=== PATIENT | male | born 1940 | race Caucasian/White ===

== ENCOUNTER 2017-06-14 13:21 | Emergency (ER) | payer MEDICARE, MEDICAID ==
--- NOTE | 2017-06-14 15:43 | RAD ---
Indication: Fall, headaches. CT of the brain was performed without IV contrast. Comparison is made with the prior exam dated 04/02/2015 and 12/04/2008. Ventricular structures are midline. No midline shift is noted. There is no intracranial mass or hemorrhage noted. Patient status post left craniotomy. Dense vessels are noted especially the middle cerebral artery from atherosclerosis. 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 IMPRESSION: Postoperative changes with no intracranial hemorrhage. Extensive atherosclerosis of the intracranial vessels is noted.
--- NOTE | 2017-06-14 15:51 | RAD ---
INDICATION: Fall. Possible neck injury COMPARISON: None TECHNIQUE: Noncontrast axial source images was performed from the skull base to the thoracic inlet. Coronal and and sagittal reformatted images were generated. FINDINGS: Vertebrae: There is no fracture or acute focal bony lesion. There are osteocytic changes with advanced narrowing about C6-C7 and moderate narrowing about C5-C6 and C4-C5. Anterior vertebral spurring, endplate changes, and uncinate process spurring leading to mild multilevel bilateral foraminal narrowing between C4 and C6. Alignment: The craniocervical junction appears normal. The cervical vertebrae are normally aligned. Central Canal: There are no significant CT abnormalities of the central canal. There is multilevel foraminal narrowing as noted above.. MR imaging is a more sensitive method to evaluate the canal and foramina. Intervertebral disc spaces: The remaining disc spaces are maintained. Brain: The visualized brain appears unremarkable. Soft tissues: There are soft tissue calcifications posteriorly consistent with prior soft tissue insult. The prevertebral soft tissues appear normal. The lung apices are clear. IMPRESSION: MODERATE MIDCERVICAL OSTEOPHYTE CHANGE. NO ACUTE FINDINGS.
--- NOTE | 2017-06-14 17:35 | RAD ---
INDICATION: Right femoral pain COMPARISON: None TECHNIQUE: AP and lateral views were obtained. FINDINGS: There is no acute bony change. There is mild bony demineralization. There is right knee arthroplasty. IMPRESSION: NO ACUTE BONY FINDINGS.
--- NOTE | 2017-06-14 17:36 | RAD ---
INDICATION: Right knee pain COMPARISON: None TECHNIQUE: AP and lateral views were obtained. FINDINGS: There is no acute bony change. There is right knee arthroplasty. The prosthesis appears well seated. IMPRESSION: NO ACUTE BONY FINDINGS.
--- NOTE | 2017-06-14 17:36 | RAD ---
INDICATION: Right hip pain. Fall. COMPARISON: None TECHNIQUE: An AP view of the pelvis and AP views of the hip in neutral and abducted position were obtained FINDINGS: Bones: There are no acute bony findings. Joint spaces: There is mild symmetric narrowing about both hip joint spaces. SI joints/symphysis: The SI joints and symphysis are intact. Other: None IMPRESSION: NO ACUTE BONY FINDINGS.
--- NOTE | 2017-06-14 17:37 | RAD ---
INDICATION: Right lower extremity pain COMPARISON: None TECHNIQUE: AP and lateral views were obtained. FINDINGS: There is osteopenia. No acute bony changes seen. There is mild dependent edema.. IMPRESSION: NO ACUTE BONY CHANGE.
[2017-06-14] MEDS ORDERED: NS 0.9% 1000 ML* 1,000 ML IV SCH (18:15)
[2017-06-14 19:19] LABS: ABS Basophils 0 10^3/ul (0-0.2); ABS Eosinophils 0 10^3/ul (0-0.6); ABS Lymphocytes 0.7 10^3/ul (1.0-4.8); ABS Monocytes 0.8 10^3/ul (0-0.8); ABS Neutrophils 6.4 10^3/ul (1.5-7.7); ABS Nucleated RBC 0 10^3/ul; Eosinophil % 0.4 % (0-6); Hematocrit 46 % (42-52); Hemoglobin 15.6 g/dl (14.0-18.0); Lymphocyte % 8.5 % (25-47); Mean Corpuscular HGB Conc 34 g/dl (31-36); Mean Corpuscular Hemoglobin 34 pg (27-31); Mean Corpuscular Volume 98 fL (80-94); Mean Platelet Volume 8 um3 (7.4-10.4); Nucleated Red Blood Cells % 0; Platelet Count 121 10^3/ul (150-450); Red Blood Count 4.64 10^6/ul (4.0-5.4); Red Cell Distribution Width 15 % (10.5-15); White Blood Count 7.9 10^3/ul (3.5-10.8)
[2017-06-14 19:28] LABS: INR 1.03 (0.77-1.02)
[2017-06-14] MEDS ORDERED: Acetaminophen TAB* 325 MG PO ONE (19:37)
[2017-06-14 20:37] VITALS: BP 146/84
[2017-06-14] MEDS ORDERED: Magnesium Sulfate 2 GM IV* 2 GM/50 ML BAG IVPB ONE (21:07)
[2017-06-14 21:49] LABS: Urine Appearance Cloudy; Urine Blood Negative (Negative); Urine Color Yellow; Urine Ketones Trace (Negative); Urine Protein Negative (Negative); Urine Specific Gravity 1.015 (1.010-1.030); Urine Urobilinogen Negative (Negative)
--- NOTE | 2017-06-14 22:13 | ED ---
Shreyas Crawford Stephanie, scribed for Christiano Da Silva MD on 06/14/17 at 1515 . Lower Extremity - HPI Summary HPI Summary: The pt is a 76 y/o M presenting to the ED with c/o lower extremity pain that began at 12:05 at [facility] s/p fall. Symptoms include neck pain, headache, and R knee and R hip pain. Pt denies abd pain and upper extremity pain. - History of Current Complaint Chief Complaint: EDExtremityLower Stated Complaint: FALL Time Seen by Provider: 06/14/17 14:33 Hx Obtained From: Patient, Family/Straightener - niece Mechanism Of Injury: Fall From A Standing Position Onset of Pain: Post Accident Onset/Duration: Hours - 3 Severity Currently: Severe Pain Intensity: 8 Pain Scale Used: 0-10 Numeric Timing: Constant Location: Is Discrete @ - R hip, R knee Associated Signs And Symptoms: Positive: Knee Pain. Negative: Abdominal Pain Aggravating Factor(s): Standing, Ambulation, Movement, Weight Bearing Alleviating Factor(s): Rest - Allergies/Home Medications Allergies/Adverse Reactions: Allergies Allergy/AdvReac Type Severity Reaction Status Date / Time Amitriptyline Allergy Unknown Verified 06/14/17 19:46 Reaction Details Topiramate Allergy Unknown Verified 06/14/17 19:46 Reaction Details propanalol Allergy Unknown Uncoded 06/14/17 19:46 Reaction Details Home Medications: Home Medications Acetaminophen TAB* [Tylenol TAB*] 650 mg PO DAILY 06/14/17 [History Confirmed ] Acetaminophen TAB* [Tylenol TAB*] 650 mg PO Q4H PRN MDD 3000mg 06/14/17 [ History Confirmed 06/14/17] Brimonidine P 0.1%(NF) [Alphagan P 0.1% (NF)] 1 drop BOTH EYES BID 06/14/17 [ History Confirmed 06/14/17] Calcium Acetate CAP* [Phoslo CAP*] 667 mg PO TID 06/14/17 [History Confirmed 04/21] Calcium Carbonate-Cholecalcife [Oyster Shell Calcium 500+] 1 chw PO TID [History Confirmed 06/14/17] Calcium Polycarbophil [Fiber-Lax] 625 mg PO DAILY 06/14/17 [History Confirmed ] Carboxymethylcellulose Sodium [Refresh Tears] 0.5 % BOTH EYES QID 06/14/17 [ History Confirmed 06/14/17] Diazepam TAB(*) [Valium TAB(*)] 2 mg PO TID 06/14/17 [History Confirmed 06/14/17 ] Divalproex DR TAB(*) [Depakote DR TAB(*)] 250 mg PO Q12H 06/14/17 [History Confirmed 06/14/17] Divalproex DR TAB(*) [Depakote DR(*)] 1,000 mg PO BID 06/14/17 [History Confirmed 06/14/17] Fluticasone NASAL SPRAY 50MCG* [Flonase NASAL SPRAY 50MCG*] 2 spray BOTH NARES DAILY 06/14/17 [History Confirmed 06/14/17] Glycerin ADULT SUPP* 1 supp WA QAM PRN 06/14/17 [History Confirmed 06/14/17] Hydrochlorothiazide TAB* [Hydrodiuril TAB*] 12.5 mg PO DAILY 06/14/17 [History Confirmed 06/14/17] Hydrocortisone 2.5% CREAM(NF) 1 applic TOPICAL Q8H PRN 06/14/17 [History Confirmed 06/14/17] Magnesium Hydroxide LIQ* [Milk of Magnesia LIQ*] 30 ml PO BEDTIME PRN 06/14/17 [ History Confirmed 06/14/17] Multiple Vitamins W/ Minerals [[facility] Formul] 1 cap PO DAILY [History Confirmed 06/14/17] Multivitamins/Minerals TAB* [Theragran/minerals TAB*] 1 tab PO DAILY 06/14/17 [ History Confirmed 06/14/17] Omeprazole CAP* [Prilosec CAP* 20 MG] 20 mg PO DAILY 06/14/17 [History Confirmed 06/14/17] Primidone TAB(*) [Mysoline TAB(*)] 250 mg PO BID 06/14/17 [History Confirmed 04/21] Riboflavin (B2) (NF) [Vitamin B-2 (NF)] 100 mg PO DAILY 06/14/17 [History Confirmed 06/14/17] Sodium Phosphate ADULT ENEMA* [Fleet Enema*] 1 enema WA DAILY PRN 06/14/17 [ History Confirmed 06/14/17] Travoprost Z 0.004% OPHTH (NF) [Travatan Z 0.004% OPTH (NF)] 1 drop BOTH EYES BEDTIME 06/14/17 [History Confirmed 06/14/17] PMH/Surg Hx/FS Hx/Imm Hx Cardiovascular History: Reports: Hx Congestive Heart Failure Opthamlomology History: Denies: Hx Legally Blind Neurological History: Reports: Hx Headaches, Hx Seizures - epilepsy - Surgical History Surgery Procedure, Year, and Place: R knee surgery - Immunization History Date of Influenza Vaccine: 03/2017 Immunizations Up to Date: Yes Infectious Disease History: No Infectious Disease History: Denies: Traveled Outside the [place] in Last 30 Days - Family History Known Family History: Positive: Unknown - Denies family history when asked - Social History Occupation: Retired Lives: [facility] Alcohol Use: None Hx Substance Use: No Substance Use Type: Reports: None Smoking Status (MU): Never Smoked Tobacco Review of Systems Negative: Fever Negative: Abdominal Pain Positive: Other - neck pain, R knee pain, R hip pain. Negative: upper extremity pain Positive: Headache All Other Systems Reviewed And Are Negative: Yes Physical Exam - Summary Physical Exam Summary: General: well-appearing, no pain distress Skin: warm, color reflects adequate perfusion, dry Head: normal Eyes: EOMI, PEDRO ENT: normal Neck: supple, nontender Respiratory: CTA, breath sounds present Cardiovascular: RRR Abdomen: soft, nontender Bowel: present Musculoskeletal: strength/ROM intact, tenderness at midline of neck, R knee tenderness, R hip tenderness, R leg tenderness, no obvious deformity. Neurological: normal, sensory/motor intact, A&O x3 Psychological: affect/mood appropriate Triage Information Reviewed: Yes Vital Signs On Initial Exam: Initial Vitals Temp Pulse Resp BP Pulse Ox 99.7 F 75 16 135/67 97 06/14/17 13:43 06/14/17 13:43 06/14/17 13:43 06/14/17 13:43 06/14/17 13:43 Vital Signs Reviewed: Yes - [place] Coma Scale Coma Scale Total: 15 Diagnostics - Vital Signs Vital Signs Temp Pulse Resp BP Pulse Ox 06/14/17 14:30 72 12 134/71 94 06/14/17 14:00 73 14 129/70 95 06/14/17 13:48 77 16 135/67 96 01/11/18 13:44 80 14 94 06/14/17 13:43 99.7 F 75 16 135 97 - Laboratory Lab Results: Lab Results 06/14/17 06/14/17 06/14/17 Range/Units 19:00 19:00 19:00 WBC (3.5-10.8) 10^3/ul RBC (4.0-5.4) 10^6/ul Hgb (14.0-18.0) g/dl Hct (42-52) % MCV (80-94) fL MCH (27-31) pg MCHC (31-36) g/dl RDW (10.5-15) % Plt Count (150-450) 10^3/ul MPV (7.4-10.4) um3 Neut % (Auto) (38-83) % Lymph % (Auto) (25-47) % Amelia % (Auto) (1-9) % Eos % (Auto) (0-6) % Baso % (Auto) (0-2) % Absolute Neuts (auto) (1.5-7.7) 10^3/ul Absolute Lymphs (auto) (1.0-4.8) 10^3/ul Absolute Monos (auto) (0-0.8) 10^3/ul Absolute Eos (auto) (0-0.6) 10^3/ul Absolute Basos (auto) (0-0.2) 10^3/ul Absolute Nucleated RBC 10^3/ul Nucleated RBC % INR (Anticoag Therapy) 1.03 H (0.77-1.02) APTT 31.8 (26.0-36.3) seconds Sodium 129 L (133-145) mmol/L Potassium 3.9 (3.5-5.0) mmol/L Chloride 94 L (101-111) mmol/L Carbon Dioxide 28 (22-32) mmol/L Anion Gap 7 (2-11) mmol/L BUN 15 (6-24) mg/dL Creatinine 0.57 L (0.67-1.17) mg/dL Est GFR ( Amer) 178.7 (>60) Est GFR (Non-Af Amer) 139.0 (>60) BUN/Creatinine Ratio 26.3 H (8-20) Glucose 111 H (70-100) mg/dL Lactic Acid (0.5-2.0) mmol/L Calcium 9.3 (8.6-10.3) mg/dL Magnesium 1.6 L (1.9-2.7) mg/dL Total Bilirubin 0.70 (0.2-1.0) mg/dL AST 17 (13-39) U/L ALT 12 (7-52) U/L Alkaline Phosphatase 49 (34-104) U/L C-Reactive Protein 3.00 (< 5.00) mg/L B-Natriuretic Peptide 86 ( - 100) pg/mL Total Protein 6.1 L (6.4-8.9) g/dL Albumin 3.6 (3.2-5.2) g/dL Globulin 2.5 (2-4) g/dL Albumin/Globulin Ratio 1.4 (1-3) Lipase 22 (11.0-82.0) U/L TSH 1.23 (0.34-5.60) mcIU/mL Urine Color Urine Appearance Urine pH (5-9) Ur Specific Greene (1.010-1.030) Urine Protein (Negative) Urine Ketones (Negative) Urine Blood (Negative) Urine Nitrate (Negative) Urine Bilirubin (Negative) Urine Urobilinogen (Negative) Ur Leukocyte Esterase (Negative) Urine Glucose (Negative) Valproic Acid 57.0 (50-100) mcg/mL 06/14/17 06/14/17 06/14/17 Range/Units 19:00 19:00 21:30 WBC 7.9 (3.5-10.8) 10^3/ul RBC 4.64 (4.0-5.4) 10^6/ul Hgb 15.6 (14.0-18.0) g/dl Hct 46 (42-52) % MCV 98 H (80-94) fL MCH 34 H (27-31) pg MCHC 34 (31-36) g/dl RDW 15 (10.5-15) % Plt Count 121 L (150-450) 10^3/ul MPV 8 (7.4-10.4) um3 Neut % (Auto) 80.7 (38-83) % Lymph % (Auto) 8.5 L (25-47) % Amelia % (Auto) 10.3 H (1-9) % Eos % (Auto) 0.4 (0-6) % Baso % (Auto) 0.1 (0-2) % Absolute Neuts (auto) 6.4 (1.5-7.7) 10^3/ul Absolute Lymphs (auto) 0.7 L (1.0-4.8) 10^3/ul Absolute Monos (auto) 0.8 (0-0.8) 10^3/ul Absolute Eos (auto) 0 (0-0.6) 10^3/ul Absolute Basos (auto) 0 (0-0.2) 10^3/ul Absolute Nucleated RBC 0 10^3/ul Nucleated RBC % 0 INR (Anticoag Therapy) (0.77-1.02) APTT (26.0-36.3) seconds Sodium (133-145) mmol/L Potassium (3.5-5.0) mmol/L Chloride (101-111) mmol/L Carbon Dioxide (22-32) mmol/L Anion Gap (2-11) mmol/L BUN (6-24) mg/dL Creatinine (0.67-1.17) mg/dL Est GFR ( Amer) (>60) Est GFR (Non-Af Amer) (>60) BUN/Creatinine Ratio (8-20) Glucose (70-100) mg/dL Lactic Acid 1.1 (0.5-2.0) mmol/L Calcium (8.6-10.3) mg/dL Magnesium (1.9-2.7) mg/dL Total Bilirubin (0.2-1.0) mg/dL AST (13-39) U/L ALT (7-52) U/L Alkaline Phosphatase (34-104) U/L C-Reactive Protein (< 5.00) mg/L B-Natriuretic Peptide ( - 100) pg/mL Total Protein (6.4-8.9) g/dL Albumin (3.2-5.2) g/dL Globulin (2-4) g/dL Albumin/Globulin Ratio (1-3) Lipase (11.0-82.0) U/L TSH (0.34-5.60) mcIU/mL Urine Color Yellow Urine Appearance Cloudy Urine pH 8.0 (5-9) Ur Specific Greene 1.015 (1.010-1.030) Urine Protein Negative (Negative) Urine Ketones Trace H (Negative) Urine Blood Negative (Negative) Urine Nitrate Negative (Negative) Urine Bilirubin Negative (Negative) Urine Urobilinogen Negative (Negative) Ur Leukocyte Esterase Negative (Negative) Urine Glucose Negative (Negative) Valproic Acid (50-100) mcg/mL Result Diagrams: 06/14/17 19:00 06/14/17 19:00 Lab Statement: Any lab studies that have been ordered have been reviewed, and results considered in the medical decision making process. - Radiology Lower Extremity XRay Xray Interpretation: No Acute Changes Radiology Interpretation Completed By: Radiologist - NO ACUTE BONY CHANGE. R Knee XRay Xray Interpretation: No Acute Changes Radiology Interpretation Completed By: Radiologist - NO ACUTE BONY FINDINGS. Hip/Pelvis XRay Xray Interpretation: No Acute Changes Radiology Interpretation Completed By: Radiologist - NO ACUTE BONY FINDINGS. R Femur XRay Xray Interpretation: No Acute Changes Radiology Interpretation Completed By: Radiologist - NO ACUTE BONY FINDINGS. - CT Brain CT Interpretation: No Acute Changes, Positive (See Comments) CT Interpretation Completed By: Radiologist - Postoperative changes with no intracranial hemorrhage. Extensive atherosclerosis of the intracranial vessels is noted. Cervical Spine CT Interpretation: No Acute Changes CT Interpretation Completed By: Radiologist - MODERATE MIDCERVICAL OSTEOPHYTE CHANGE. NO ACUTE FINDINGS. - EKG 13:41 EKG Rhythm: Sinus Rhythm - 72 BPM Ectopy: None EKG Interpretation: borderline T abnormalities in inferior leads. Lower Extremity Course/Dx - Course Course Of Treatment: PATIENT HAD A SELF LIMITING SEIZURE IN THE ED. THE SEIZURE AND LAB RESULTS DISCUSSED WITH THE PATIENT'S NIECE. SHE PREFERS TO NOT CHANGE ANTI SEIZURE MEDICATIONS HERE IN THE ED; SHE PREFERS TO CONTACT THE PATIENT'S NEUROLOGIST TOMORROW FOR TREATMENT RECOMMENDATIONS. F/U WITH PMD AND NEUROLOGIST; RETURN IF WORSE. - Diagnoses Provider Diagnoses: Seizure, Right leg pain, Hypomagnesemia Discharge - Discharge Plan Condition: Stable Disposition: HOME Patient Education Materials: Epilepsy (ED), Knee Pain (ED), Leg Pain (ED), Hypomagnesemia (ED) Referrals: Torres Carroll MD [Primary Care Provider] - Alondra Rosenberg MD [Medical Doctor] - Additional Instructions: FOLLOW UP WITH YOUR DOCTOR. CALL YOUR NEUROLOGIST TOMORROW, 1/12/18, FOR ADVICE ABOUT THE SEIZURE THAT OCCURRED TODAY. RETURN TO THE EMERGENCY DEPARTMENT FOR ANY WORSENING OF YOUR CONDITION; PAIN, SEIZURES, YOU FEEL ILL OR QUESTIONS OR CONCERNS. The documentation as recorded by the Shreyas mullins Stephanie accurately reflects the service I personally performed and the decisions made by me, Christiano Da Silva MD.
== END 2017-06-15 00:44 | disposition home or self-care (01) ==
LOC: ED 13:21
DX: R56.9 Unspecified convulsions (principal); M79.604 Pain in right leg; M25.561 Pain in right knee; E83.42 Hypomagnesemia; Z86.79 Personal history of other diseases of the circulatory system; M54.2 Cervicalgia; R51 Headache
CPT/HCPCS: 36415; 70450; 72125; 80053; 80164; 81003; 83605; 83690; 83735; 83880; 84443; 85025; 85610; 85730; 86140; 93005; 99284; A9270-GY; J3475

== ENCOUNTER 2017-07-03 07:51 | Inpatient (IN) | payer MEDICARE, MEDICAID ==
[2017-07-03 09:35] LABS: ABS Basophils 0 10^3/ul (0-0.2); ABS Eosinophils 0.2 10^3/ul (0-0.6); ABS Monocytes 0.6 10^3/ul (0-0.8); ABS Neutrophils 3.5 10^3/ul (1.5-7.7); ABS Nucleated RBC 0 10^3/ul; Eosinophil % 3.3 % (0-6); Hematocrit 45 % (42-52); Hemoglobin 15.4 g/dl (14.0-18.0); Mean Corpuscular HGB Conc 34 g/dl (31-36); Mean Corpuscular Hemoglobin 34 pg (27-31); Mean Corpuscular Volume 98 fL (80-94); Mean Platelet Volume 8 um3 (7.4-10.4); Nucleated Red Blood Cells % 0.2; Platelet Count 190 10^3/ul (150-450); Red Blood Count 4.59 10^6/ul (4.0-5.4); Red Cell Distribution Width 14 % (10.5-15); White Blood Count 5.2 10^3/ul (3.5-10.8)
[2017-07-03 09:53] LABS: EGFR Non-African American 113.4 (>60)
[2017-07-03] MEDS ORDERED: Morphine INJ* 2 MG/ML 1 ML SYRINGE (TWO MG - NEW SYRINGE VERSION) IV PRN (11:45)
[2017-07-03] MEDS ORDERED: Magnesium Hydroxide LIQ* 30 ML UDC PO PRN (11:50)
[2017-07-03] MEDS ORDERED: Sodium Phosphate ADULT ENEMA* 118 ml bottle PR PRN (11:50)
[2017-07-03] MEDS ORDERED: Glycerin ADULT SUPP PR PRN (11:50)
--- NOTE | 2017-07-03 12:17 | RAD ---
Indication: Right hip fracture. Single view of the chest demonstrates cardiomegaly. There is likely poor inspiration noted. No alveolar consolidation is noted. IMPRESSION: Cardiomegaly. Poor inspiration.
--- NOTE | 2017-07-03 12:18 | RAD ---
Indication: Right hip pain. 2 views of the right hip and an AP view the pelvis demonstrates impacted fracture of the neck of the right femur. There is some foreshortening noted. IMPRESSION: Fracture of the neck of the right femur with impaction.
[2017-07-03] MEDS: Acetaminophen TAB* 325 MG PO PRN ×2 (12:31→19:46)
[2017-07-03] MEDS ORDERED: Buffered Lidocaine 0.9% SYRIN* 5 ML/SYR SYRINGE INTRADERM SCH (13:52)
[2017-07-03] MEDS ORDERED: NS 0.9% 1000 ML* 1,000 ML IV SCH (14:00)
[2017-07-03] MEDS: Calcium Acetate CAP* 667 MG PO SCH ×2 (14:28→20:27)
[2017-07-03] MEDS: Heparin VIAL(*) 5000 UNITS/ML VIAL (FIVE THOUSAND) SUBCUT SCH ×2 (15:17→21:26)
[2017-07-03] MEDS: NS 0.9% 1000 ML* 1,000 ML IV SCH (15:33)
--- NOTE | 2017-07-03 18:51 | HP ---
CC: Dr. Kendrick; Dr. Noreen Mcdaniels * HISTORY AND PHYSICAL: DATE OF ADMISSION: 07/03/17 PRIMARY CARE PROVIDER: Dr. Noreen Mcdaniels. CHIEF COMPLAINT: Right hip pain. HISTORY OF PRESENT ILLNESS: Ravi Gage is a 76-year-old male with history of dementia, epilepsy, who fell out of bed at [facility] on 04/21. Initially pelvis x-rays and hip x-rays were unremarkable, but due to the continuation of pain, his primary care provider obtained a CT of the pelvis and of right hip on 06/28/17 that showed a fracture. The patient's healthcare proxy, his niece, Diamante, although previously requested comfort care measures only, is agreeable to the needed surgery. Past medical history: dementia, HTN, seizure disorder CURRENT MEDICATIONS: Include: 1. Glycerin suppository, one suppository rectally q.a.m. p.r.n. 2. Acetaminophen on a p.r.n. basis. 3. Travatan eye drops 0.004% one drop both eyes bedtime. 4. Fleet Enema on a p.r.n. basis. 5. Milk of magnesia on a p.r.n. basis. 6. Refresh Tears 0.5% both eyes 4 times a day. 7. Diazepam 2 mg 3 times a day. 8. Calcium acetate 667 mg 3 times a day. 9. Calcium carbonate and vitamin D one chewable 3 times a day. 10. Primidone 250 mg b.i.d. 11. Depakote DR 1250 mg 2 times a day. 12. Alphagan eye drops 0.1% one drop both eyes b.i.d. 13. Vitamin B2 100 mg daily. 14. Omeprazole 20 mg daily. 15. Multivitamin one tablet daily. 16. Hydrochlorothiazide 12.5 mg daily. 17. Flonase nasal spray two sprays both nostrils daily. 18. Fiber-Lax 625 mg daily. ALLERGIES: Include AMITRIPTYLINE, TOPAMAX, and PROPRANOLOL. The reactions are unknown. FAMILY HISTORY: Unobtainable from this patient who has significant dementia. SOCIAL HISTORY: The patient as per my discussion with niece, [facility] a [facility]. Previously for several years, he was with his in a assisted living facility where he was taken care of by his . REVIEW OF SYSTEMS: The patient complained of pain and he indicates his right hip. All the other 12 systems were reviewed with the patient, very limited due to his dementia and were otherwise negative. PHYSICAL EXAMINATION VITAL SIGNS: Blood pressure of 116/71, heart rate of 74 and regular, respiratory rate 14, oxygen saturation 95% on 2 L of oxygen nasal cannula and 93 % on room air, temperature 98.6. GENERAL: The patient is a very pleasant 76-year-old male, who is in no acute distress. The patient is oriented to self only. He is able to follow simple commands. HEENT: Head: Atraumatic, normocephalic. Eyes: Pupils are equal and reactive to light and accommodation. Oropharynx clear. Mucosa moist. NECK: Supple. No JVD. No bruits bilaterally. RESPIRATORY: Clear to auscultation bilaterally. CARDIOVASCULAR: Regular rate and rhythm. No murmur. ABDOMEN: Soft and nontender. Bowel sounds are present in all 4 quadrants. EXTREMITIES: There is no edema. Pulses +2 bilaterally. There is no clubbing or cyanosis. NEURO: Speech is clear. Cranial nerves II through XII grossly intact. Motor strength is 5/5 bilaterally. PSYCHIATRIC: The patient is oriented x1, pleasant and cooperative with the evaluation. Very limited understanding. SKIN: On evaluation of the skin, no ecchymotic areas or rashes noted. Please note that per my discussion with patient's niece, Diamante, the patient is basically Tessa lift at [facility]. DIAGNOSTIC STUDIES/LAB DATA: Show white blood cell count of 5.2, hemoglobin of 15.4, hematocrit of 45, MCV of 98, and platelets of 190. Sodium was 134, potassium 4.1, chloride 101, carbon dioxide 27, BUN 17, creatinine 0.68. Liver function tests are unremarkable. C-reactive protein of 13. The patient's EKG showed negative T waves in V1 to V3, comparable to prior EKG from a couple of weeks ago. The patient's CT scan obtained on 06/28/17 showed "minimally impacted subcapital fracture of the right femur." ASSESSMENT AND PLAN: 1. For the patient's right femur fracture/hip fracture, I discussed the case with Dr. Kendrick. The patient is basically a Tessa lift patient. He is unable to give me information about history of chest pain or shortness of breath. Obviously, due to basically being bed bound, he has no exercise capacity that we can establish. His EKG is unremarkable. He does not have history of diabetes and his renal function is fine. At this point, there is no contraindication to anticipated surgery tomorrow and the patient is an acceptable candidate for the surgery. 2. For the patient's history of seizure disorder, the patient is going to be continued on his Depakote on current dose and Depakote levels are going to be obtained. 3. The patient's history of hypertension and current pressures are in the one teens. I will hold the patient's hydrochlorothiazide for the time being. 4. For DVT prophylaxis, the patient is going to be placed on heparin subcutaneously. 5. The patient was do not resuscitate and comfort care at [facility]. I discussed it with the patient's healthcare proxy, the patient's niece, Diamante. Diamante requested for the patient to have the necessary surgery done since it will treat the patient's pain. At this point, the patient's MOLST form is going to be changed to do not resuscitate and do not intubate. Diamante is aware that this form is going to be rescinded during the patient's surgery any way. TIME SPENT: Approximately 65 minutes was spent on admission of this patient, more than half that time was spent [id number] with the patient during the interview and physical exam. [id number]/CPS #: [id number] MTDD
[2017-07-03] MEDS ORDERED: Divalproex DR TAB(*) 250 MG PO SCH (20:00)
[2017-07-03] MEDS ORDERED: Divalproex DR TAB(*) 500 MG PO SCH (20:00)
[2017-07-03] MEDS: CMC:Brimonidine P 0.1%(NF) 1 DROP BTL BOTH EYES SCH (21:25)
[2017-07-03] MEDS: Primidone TAB(*) 250 MG PO SCH (21:26)
--- NOTE | 2017-07-03 22:44 | CONS ---
CONSULTATION REPORT: DATE OF CONSULT: 07/03/17 ATTENDING PROVIDER: China Maguire MD ORTHOPEDIC CONSULT PROVIDER: Dr. Nishant Kendrick. HISTORY OF PRESENT ILLNESS: Mr. Gage is a 76-year-old male presenting to [facility] Emergency Room via EMS from [facility] for a fractured right femur, status post fall on 06/14/17. The patient did come to the emergency room on 06/14/17. X-rays were done, but no fracture identified. Due to continued pain, the patient had a CT scan done on 06/28/17, which did show a right femur fracture. Yesterday on 07/02/17, the patient was instructed to come to the emergency room when the long-term contacted Dr. Samayoa. At baseline, patient does pivot and walk with assist. Since his fall, he has been using a Tessa, going directly to wheelchair. Fall originally occurred due to the patient getting up alone without assistance. He does suffer from dementia. Today, he has no pain of the right lower extremity. He has had surgery in the past and tolerated anesthesia well. He does not bruise or bleed easily. He is not on any blood thinners. He does not have a history of blood clot, heart attack, or stroke. He does not have diabetes or thyroid disease. PAST MEDICAL HISTORY: Includes hypertension and seizures, last witnessed seizure was 06/14/17. 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 PAST SURGICAL HISTORY: Includes right total knee arthroplasty and 2 brain surgeries as a teenager. SOCIAL HISTORY: The patient lives at [facility]. He does not smoke. He does not use drug. He does not drink alcohol. REVIEW OF SYSTEMS: General: No fever or chills. Cardio: No chest pain. No irregular beats. Respiratory: No shortness of breath. The patient does have a chronic cough x2 months. Musculoskeletal: Right leg pain only with movement and decreased range of motion of right leg. GI: No abdominal upset. No nausea , vomiting, diarrhea. PHYSICAL EXAM: General: The patient is well appearing, no acute distress. Heart: S1 and S2. Regular rate and rhythm. Lungs: Clear to auscultation bilaterally. Abdomen: Soft and nontender. No obvious masses. Musculoskeletal : Right lower extremity, no ecchymosis, no lacerations or abrasions. The patient has decreased range of motion at the hip and knee. No obvious deformity. Neuro: The patient is alert, normal speech, follows commands. + Dementia, pleasant. Answers some questions. Vascular: Bilateral dorsalis pedis and posterior tibial pulses 2+. Skin: No lacerations, no hematomas. DIAGNOSTIC STUDIES/LAB DATA: Imaging: Right hip x-ray, impression: Fracture of the neck of the right femur with impaction. CT right lower extremity, minimally impacted subcapital fracture of the right femur. ASSESSMENT: Subcapital fracture, right femur. PLAN: The patient will be taken to the operating room by Dr. Kendrick for cannulated screw placement on 07/04/17. The patient to be medically optimized by medicine. GAUDENCIO WOODARD [id number]/CPS #: [id number]
[2017-07-04 05:44] LABS: EGFR Non-African American 133.6 (>60)
[2017-07-04] MEDS: Heparin VIAL(*) 5000 UNITS/ML VIAL (FIVE THOUSAND) SUBCUT SCH ×2 (05:51→05:52)
[2017-07-04] MEDS ORDERED: ceFAZolin 1 GM in Dextrose (*) 2 GM/100 ML BAG IVPB ONE (07:07)
[2017-07-04] MEDS ORDERED: fentaNYL* 50 MCG/ML 2 ML VIAL (100 MCG VIAL) ONE (07:37)
[2017-07-04] MEDS ORDERED: Midazolam* 1 MG/ML 2 ML VIAL (2 MG) ONE (07:37)
[2017-07-04] MEDS ORDERED: Bupivacaine 0.25% SDV* 30 ML ONE (07:40)
[2017-07-04] MEDS ORDERED: ceFAZolin 2 GM PREMIX (*) 50 ML IVPB ONE (07:45)
[2017-07-04] MEDS ORDERED: Famotidine IV* 10 MG/ML 2 ML (20 mg) ONE (08:02)
[2017-07-04] MEDS ORDERED: Propofol* 10 MG/ML 20 ML BTL IV PUSH ONE (08:02)
[2017-07-04] MEDS ORDERED: Lidocaine 2% PF * 5 ML VIAL ONE (08:02)
[2017-07-04] MEDS ORDERED: Dexamethasone IV* 4 MG/ML 1 ML (4 MG) ONE (08:02)
[2017-07-04] MEDS ORDERED: Rocuronium* 10 MG/ML VIAL ONE (08:03)
[2017-07-04] MEDS: CEFAZOLIN IVPB ONE ×2 (08:07→08:11)
[2017-07-04] MEDS: Omeprazole CAP* 20 MG PO SCH (08:07)
[2017-07-04] MEDS: D5W IVPB ONE ×2 (08:07→08:11)
[2017-07-04] MEDS ORDERED: Naloxone* 0.4 MG/ML 1 ML VIAL IV PRN (08:51)
[2017-07-04] MEDS ORDERED: DiMENhydriNATE IV* 50 MG/ML VIAL IV PUSH PRN (08:51)
[2017-07-04] MEDS ORDERED: Ondansetron INJ* 2 MG/ML VIAL IV PRN (08:51)
[2017-07-04] MEDS ORDERED: fentaNYL* 50 MCG/ML 2 ML VIAL (100 MCG VIAL) IV PRN (08:51)
[2017-07-04] MEDS ORDERED: Valproic Acid IV(*) 1,000 MG in NS 0.9% 100 ML* 100 ML IVPB ONE (09:00)
[2017-07-04] MEDS ORDERED: NS 0.9% IVPB ONE (09:00)
[2017-07-04] MEDS ORDERED: VALPROIC ACID IVPB ONE (09:00)
[2017-07-04] MEDS ORDERED: Ketorolac INJ* 30 MG/ML 1 ML VIAL ONE (09:02)
[2017-07-04] MEDS: Acetaminophen TAB* 325 MG PO PRN (10:51)
[2017-07-04] MEDS: CMC:Brimonidine P 0.1%(NF) 1 DROP BTL BOTH EYES SCH ×2 (11:07→19:55)
[2017-07-04] MEDS: Fluticasone NASAL SPRAY 50MCG* 16 gm SPRAY BTL BOTH NARES SCH (11:08)
[2017-07-04] MEDS: Primidone TAB(*) 250 MG PO SCH ×2 (11:08→19:55)
[2017-07-04] MEDS: Multivitamins/Minerals TAB PO SCH (11:08)
[2017-07-04] MEDS: Calcium Polycarbophil TAB* 625 MG PO SCH (11:08)
[2017-07-04] MEDS: Multivitamins/Minera Areds(NF) 1 CAP CAP PO SCH (11:08)
[2017-07-04] MEDS: Calcium Acetate CAP* 667 MG PO SCH ×3 (11:08→19:55)
--- NOTE | 2017-07-04 11:11 | RAD ---
CPT II Codes: 6045F INDICATION: Right hip fracture TECHNIQUE: Intraoperative fluoroscopy was provided during percutaneous medullary thinning of the right femoral neck and head. FINDINGS: 6 spot films depict anatomic placement of 3 intramedullary screws spanning the right femoral trochanter, neck and head. Fluoroscopy time: 54.2 seconds IMPRESSION: As above.
[2017-07-04] MEDS: NS 0.9% 1000 ML* 1,000 ML IV SCH (11:45)
[2017-07-04] MEDS: ceFAZolin 1 GM in Dextrose (*) 1 GM/50 ML BAG IVPB SCH ×2 (16:50→23:43)
--- NOTE | 2017-07-04 17:03 | PN ---
Subjective Date of Service: 07/04/17 Interval History: Pt is sen mildly sedated post op. No complaints Objective Active Medications: Acetaminophen (Tylenol Tab*) 650 mg PO Q4H PRN PRN Reason: FEVER/PAIN Last Admin: 07/04/17 10:51 Dose: 650 mg Brimonidine Tartrate (Alphagan P 0.1% (Nf)) 1 drop BOTH EYES BID [facility] Last Admin: 07/04/17 11:07 Dose: Not Given Calcium Acetate (Phoslo Cap*) 667 mg PO TID [facility] Last Admin: 07/04/17 14:16 Dose: 667 mg Calcium Polycarbophil (Fibercon Tab*) 625 mg PO DAILY [facility] Last Admin: 07/04/17 11:08 Dose: Not Given Divalproex Sodium (Depakote Dr Tab(*)) 250 mg PO 2000 [facility] Divalproex Sodium (Depakote Dr Tab(*)) 1,000 mg PO 2000 [facility] Enoxaparin Sodium (Lovenox(*)) 30 mg SUBCUT DAILY [facility] Fluticasone Propionate (Flonase Nasal Galliano 50mcg*) 2 spray BOTH NARES DAILY [facility] Last Admin: 07/04/17 11:08 Dose: Not Given Sodium Chloride (Ns 0.9% 1000 Ml*) 1,000 mls @ 75 mls/hr IV PER RATE [facility] Last Admin: 07/04/17 11:45 Dose: 75 mls/hr Sodium Chloride (Ns 0.9% 1000 Ml*) 1,000 mls @ 25 mls/hr IV PER RATE [facility] Cefazolin Sodium/Dextrose (Kefzol 1 Gm In Dextrose Duplex (*)) 1 gm in 50 mls @ 200 mls/hr IVPB Q8H [facility] Stop: 07/05/17 08:14 Last Admin: 07/04/17 16:50 Dose: 200 mls/hr Magnesium Hydroxide (Milk Of Magnesia Liq*) 30 ml PO BEDTIME PRN PRN Reason: CONSTIPATION Morphine Sulfate (Morphine Inj (Syringe)*) 1 mg IV Q4H PRN PRN Reason: PAIN Multivitamins/Minerals (Preservision Areds(Multivitamins/Mineral)(Nf)) 1 cap PO DAILY [facility] Last Admin: 07/04/17 11:08 Dose: Not Given Multivitamins/Minerals (Theragran/Minerals Tab*) 1 tab PO DAILY [facility] Last Admin: 07/04/17 11:08 Dose: Not Given Omeprazole (Prilosec Cap*) 20 mg PO DAILY@0600 [facility] Last Admin: 07/04/17 08:07 Dose: Not Given Oxycodone/Acetaminophen (Percocet 5/325 Tab*) 1 tab PO Q4H PRN PRN Reason: Pain Primidone (Mysoline Tab(*)) 250 mg PO BID [facility] Last Admin: 07/04/17 11:08 Dose: Not Given Sodium Biphosphate/Sodium Phosphate (Fleet Enema*) 1 bottle KS DAILY PRN PRN Reason: CONSTIPATION Vital Signs - 8 hr 07/04/17 07/04/17 07/04/17 09:26 09:30 09:35 Temperature 97.7 F Pulse Rate 77 69 70 Respiratory 16 15 15 Rate Blood Pressure 127/78 140/81 129/72 (mmHg) O2 Sat by Pulse 93 97 97 Oximetry 07/04/17 07/04/17 07/04/17 09:38 09:40 09:44 Temperature Pulse Rate 69 69 Respiratory 13 16 16 Rate Blood Pressure 122/74 117/72 (mmHg) O2 Sat by Pulse 97 96 96 Oximetry 07/04/17 07/04/17 07/04/17 10:00 10:15 10:30 Temperature Pulse Rate 67 66 Respiratory 13 12 12 Rate Blood Pressure 122/71 121/66 (mmHg) O2 Sat by Pulse 95 93 Oximetry 07/04/17 07/04/17 07/04/17 10:35 11:36 13:01 Temperature 97.9 F 97.3 F 96.9 F Pulse Rate 66 68 75 Respiratory 16 18 18 Rate Blood Pressure 127/78 137/77 137/85 (mmHg) O2 Sat by Pulse 97 97 98 Oximetry 07/04/17 13:19 Temperature 97.9 F Pulse Rate 66 Respiratory 16 Rate Blood Pressure 127/78 (mmHg) O2 Sat by Pulse 97 Oximetry Oxygen Devices in Use Now: Nasal Cannula - at 2L Appearance: 76 yo M in nAD, AAOx1 Eyes: No Scleral Icterus, PERRLA Ears/Nose/Mouth/Throat: NL Teeth, Lips, Gums, Mucous Membranes Moist Neck: NL Appearance and Movements; NL JVP, Trachea Midline Respiratory: Symmetrical Chest Expansion and Respiratory Effort, Clear to Auscultation Cardiovascular: NL Sounds; No Murmurs; No JVD, RRR Abdominal: NL Sounds; No Tenderness; No Distention Lymphatic: No Cervical Adenopathy Extremities: No Edema, No Clubbing, Cyanosis Skin: No Nodules or Sclerosis, - - R hip -post op dressings not removed Neurological: NL Muscle Strength and Tone Result Diagrams: 07/03/17 09:25 07/04/17 04:46 Microbiology and Other Data: Microbiology 07/03/17 13:50 Nasal Screen MRSA (PCR)(TIFFANIE) - Final Nasal Mrsa Not Detected Assess/Plan/Problems-Billing Assessment: 76 yo M with h/o dementia, epilepsy, HTN presents with R hip pain - Patient Problems (1) Closed right hip fracture Comment: s/p ORIF today, doing well. (2) Seizure disorder Comment: cont Depakote (3) HTN (hypertension) Comment: BP WNL, holding HCTZ (4) DVT prophylaxis Comment: lovenox as per ortho Status and Disposition: inpatient
--- NOTE | 2017-07-04 17:36 | ED ---
Milton Crawford Angela, scribed for Alexey Taylor MD on 07/03/17 at 0800 . Lower Extremity - HPI Summary HPI Summary: This pt is a 76 y/o male presenting to [facility] via EMS from [facility] for a fractured right femur s/p fall on 06/14/17. EMS reports the pt fell on 06/14 and came to the ED. Pt had XRs done that showed no fractures. Pt was seen on the 06/28/[address] done of his RLE, which showed a right femur fracture. Dr. Samayoa spoke with the pt yesterday and requested for the pt to come to the ED today. - History of Current Complaint Stated Complaint: FALL Hx Obtained From: Patient, EMS Mechanism Of Injury: Fall From A Standing Position Onset of Pain: Days Onset/Duration: Days Severity Currently: Moderate Timing: Constant, Lasting Days Location: Is Discrete @ - right lower extremity Aggravating Factor(s): Movement Alleviating Factor(s): Rest - Allergies/Home Medications Allergies/Adverse Reactions: Allergies Allergy/AdvReac Type Severity Reaction Status Date / Time MS Amitriptyline Allergy Unknown Verified 06/14/17 19:46 Reaction Details MS Topiramate Allergy Unknown Verified 06/14/17 19:46 Reaction Details propanalol Allergy Unknown Uncoded 06/14/17 19:46 Reaction Details PMH/Surg Hx/FS Hx/Imm Hx Endocrine/Hematology History: Denies: Hx Diabetes Cardiovascular History: Reports: Hx Congestive Heart Failure, Hx Hypertension Neurological History: Reports: Hx Headaches, Hx Seizures - Family History Known Family History: Positive: Unknown - pt has hx of dementia. - Social History Lives: At [facility] Alcohol Use: None Substance Use Type: Reports: None Smoking Status (MU): Never Smoked Tobacco Review of Systems Negative: Fever, Chills Eyes: Negative ENT: Negative Cardiovascular: Negative Respiratory: Negative Musculoskeletal: Other - right leg pain Positive: Decreased ROM - right leg All Other Systems Reviewed And Are Negative: Yes Physical Exam - Summary Physical Exam Summary: VITAL SIGNS: Reviewed. GENERAL: Patient is an elderly male who is lying comfortable in the stretcher. Patient is in no acute distress. HEAD AND FACE: No signs of trauma. No ecchymosis, hematomas or skull depressions. No sinus tenderness. EYES: PERRLA, EOMI x 2, No injected conjunctiva, no nystagmus. EARS: Hearing grossly intact. Ear canals and tympanic membranes are within normal limits. MOUTH: Oropharynx within normal limits. NECK: Supple, trachea is midline, no adenopathy, no JVD, no carotid bruit, no c- spine tenderness, neck with full ROM. CHEST: Symmetric, no tenderness at palpation LUNGS: Clear to auscultation bilaterally. No wheezing or crackles. CVS: Regular rate and rhythm, S1 and S2 present, no murmurs or gallops appreciated. ABDOMEN: Soft, non-tender. No signs of distention. No rebound no guarding, and no masses palpated. Bowel sounds are normal. EXTREMITIES: no edema, no cyanosis or clubbing. Decreased ROM of right leg secondary to pain. There is tenderness along the right femur. Decreased ROM. Good pulses. Good capillary refill. No ecchymosis. No hematomas. NEURO: Alert but not oriented. No acute neurological deficits. Speech is normal and follows commands. SKIN: Dry and warm Triage Information Reviewed: Yes Vital Signs On Initial Exam: Initial Vitals Temp Pulse Resp BP Pulse Ox 98.6 F 79 18 132/80 95 07/03/17 07:55 07/03/17 07:55 07/03/17 07:55 07/03/17 07:55 07/03/17 07:55 Vital Signs Reviewed: Yes Diagnostics - Vital Signs Vital Signs Temp Pulse Resp BP Pulse Ox 07/03/17 11:00 74 116/71 95 07/03/17 10:30 75 121/70 95 07/03/17 10:00 102 133/85 95 07/03/17 09:30 75 142/74 97 07/03/17 09:00 73 129/78 96 07/03/17 08:30 76 104/74 95 07/03/17 08:03 76 91 07/03/17 08:02 148/81 07/03/17 07:55 98.6 F 79 18 132/80 95 - Laboratory Lab Results: Lab Results 07/03/17 07/03/17 Range/Units 09:25 09:25 WBC 5.2 (3.5-10.8) 10^3/ul RBC 4.59 (4.0-5.4) 10^6/ul Hgb 15.4 (14.0-18.0) g/dl Hct 45 (42-52) % MCV 98 H (80-94) fL MCH 34 H (27-31) pg MCHC 34 (31-36) g/dl RDW 14 (10.5-15) % Plt Count 190 (150-450) 10^3/ul MPV 8 (7.4-10.4) um3 Neut % (Auto) 66.3 (38-83) % Lymph % (Auto) 19.0 L (25-47) % Routt % (Auto) 10.9 H (1-9) % Eos % (Auto) 3.3 (0-6) % Baso % (Auto) 0.5 (0-2) % Absolute Neuts (auto) 3.5 (1.5-7.7) 10^3/ul Absolute Lymphs (auto) 1.0 (1.0-4.8) 10^3/ul Absolute Monos (auto) 0.6 (0-0.8) 10^3/ul Absolute Eos (auto) 0.2 (0-0.6) 10^3/ul Absolute Basos (auto) 0 (0-0.2) 10^3/ul Absolute Nucleated RBC 0 10^3/ul Nucleated RBC % 0.2 Sodium 134 (133-145) mmol/L Potassium 4.1 (3.5-5.0) mmol/L Chloride 101 (101-111) mmol/L Carbon Dioxide 27 (22-32) mmol/L Anion Gap 6 (2-11) mmol/L BUN 17 (6-24) mg/dL Creatinine 0.68 (0.67-1.17) mg/dL Est GFR ( Amer) 145.8 (>60) Est GFR (Non-Af Amer) 113.4 (>60) BUN/Creatinine Ratio 25.0 H (8-20) Glucose 93 (70-100) mg/dL Calcium 9.4 (8.6-10.3) mg/dL Total Bilirubin 0.40 (0.2-1.0) mg/dL AST 16 (13-39) U/L ALT 10 (7-52) U/L Alkaline Phosphatase 67 (34-104) U/L C-Reactive Protein 13.88 H (< 5.00) mg/L Total Protein 6.1 L (6.4-8.9) g/dL Albumin 3.4 (3.2-5.2) g/dL Globulin 2.7 (2-4) g/dL Albumin/Globulin Ratio 1.3 (1-3) Valproic Acid 65.0 (50-100) mcg/mL Result Diagrams: 07/03/17 09:25 07/04/17 04:46 Lab Statement: Any lab studies that have been ordered have been reviewed, and results considered in the medical decision making process. - Radiology Chest XR Xray Interpretation: Positive (See Comments) - IMPRESSION: Cardiomegaly. Poor inspiration. Dr. Taylor has reviewed this radiology report. Radiology Interpretation Completed By: Radiologist Right hip XR Xray Interpretation: Positive (See Comments) - IMPRESSION: Fracture of the neck of the right femur with impaction. Dr. Taylor has reviewed this radiology report. Radiology Interpretation Completed By: Radiologist - CT RLE CT CT Interpretation: Positive (See Comments) - IMPRESSIOn: Minimally impacted subcapital fracture right femur. Findings called to referring clinician. Dr. Taylor has reviewed this radiology report. CT Interpretation Completed By: Radiologist - EKG 09:22 Cardiac Rate: NL - at 75 bpm EKG Rhythm: Sinus Rhythm EKG Interpretation: No ST elevation. T wave inversion in III. EKG Comparison: No Significant Change - similar to prior EKG on 06/14/17. Lower Extremity Course/Dx - Course Course Of Treatment: This pt is a 76 y/o male presenting to [facility] via EMS from [facility] for a fractured right femur s/p fall on 06/14/17. EMS reports the pt fell on 06/14/17 and came to the ED. Pt had XRs done that showed no fractures. Pt was seen on the 06/28/[address] done of his RLE, which showed a right femur fracture. Dr. Samayoa spoke with the pt yesterday and requested for the pt to come to the ED today. Test results without any significant abnormalities. It seems that an XR in the past didnt show fracture of the right femur. However the RLE CT shows a minimally impacted subcapital fracture right femur. Therefore the residential called Dr. Samayoa and requested for the pt to be transferred to the ED for further assessment. I discussed the case with Dr. Kendrick, orthopedist, and requested an XR of the hip. Right hip XR shows fracture of the neck of the right femur with impaction. He will consult on the pt. I discussed the case with Dr. Maguire, hospitalist, who accepted the pt for admission. Pt is hemodynamically stable and alert. - Diagnoses Differential Diagnosis/HQI/PQRI: Positive: Bursitis, Cellulitis, Dislocation, Fracture (Closed), Sprain, Strain Provider Diagnoses: Subcapital fracture of right femur - Physician Notifications Discussed Care Of Patient With: Nurse on behalf of Dr. Samayoa - Orthopedics Time Discussed With Above Provider: 09:16 Instructed by Provider To: Other - I discussed pt's case with Dr. Samayoa's nurse , who states I should call Dr. Kendrick (production team member) as Dr. Samayoa is in surgery. [09 :22] I discussed pt care with Dr. Kendrick, who will consult on the pt. [10:25] I spoke with Dr. Maguire, hospitalist, who has agreed to admit the pt. Discharge - Discharge Plan Condition: Stable Disposition: ADMITTED TO [facility] documentation as recorded by the Milotn mullins Angela accurately reflects the service I personally performed and the decisions made by me, Alexey Taylor MD.
[2017-07-04] MEDS ORDERED: Morphine INJ* 2 MG/ML 1 ML CARPUJECT IV PRN (18:01)
[2017-07-04] MEDS: Divalproex DR TAB(*) 500 MG PO SCH (19:54)
[2017-07-04] MEDS: Divalproex DR TAB(*) 250 MG PO SCH (19:54)
--- NOTE | 2017-07-05 00:36 | OP ---
DATE OF OPERATION: 07/04/17 - ROOM #338 DATE OF : 40 SURGEON: Nishant Kendrick MD ANESTHESIOLOGIST: Dr. Veras ANESTHESIA: General endotracheal. PRE-OP DIAGNOSIS: Valgus impacted subcapital right hip fracture. POST-OP DIAGNOSIS: Valgus impacted subcapital right hip fracture. OPERATIVE PROCEDURE: Percutaneous pinning, right hip fracture. ESTIMATED BLOOD LOSS: Minimal. COMPLICATIONS: None. SUMMARY: Mr. Gage is a 76-year-old male who had fallen earlier this month. He had presented to the emergency room on 06/14/17 and x-rays had been read as normal. They do look quite good. He still had continued pain about the hip and eventually underwent a CT scan at the end of last week, which did find a valgus impacted subcapital hip fracture. Dr. Samayoa had discussed with his niece who has power of business attorney, the nature of the fracture and recommended treatment, and the niece had wanted to be here when he was admitted. She was available yesterday and he presented to the emergency room yesterday and was admitted by the hospitalist service. I discussed with Mr. Gage as well as his niece yesterday risks of surgery such as infection, scar formation, stiffness, DVT, pulmonary embolism and avascular necrosis of the femoral head. He had been declared medically optimized and they all wished to proceed. DESCRIPTION OF PROCEDURE: The patient was brought to the OR and general endotracheal anesthesia was established. He was then transferred to the fracture table. He was placed on the fracture table so that C-arm could be brought in nicely and good AP and lateral views of the hip could be obtained. Right hip area was prepped and then draped. Skin over the initial incision was infiltrated using 0.25% Marcaine with epinephrine and a stab incision was made with a #10 blade. Straight snap was passed up through the IT band and spread a little bit so that the pins would not catch the IT band and I had a narrow corridor to work in. Guidewire was run after a start spot was aided with radiographic guidance and on the AP view, this ran up nicely through the neck into the head. Coming to the lateral view, however, it could be seen where I started a little bit anterior and a little bit posterior and I came back and tried to change back my angle, but with the soft tissues on the side of the thigh, I had significant difficulty trying to get the guidepin into the correct angle. Second stab incision was made inferior to this and similarly, this had been infiltrated using 0.25% Marcaine. Guidewire now ran nicely directly up the neck into the head and I was in the center on both AP and lateral views. A guidewire measuring out was measured and a 95-mm short thread screw was called for. Drill was run over the guidewire and screw was placed. Very nice bite was obtained with the screw. Second guidewire was placed and adjusted into a light positioning and similarly, this was drilled and then a screw placed. A third one was placed so I had the inverted triangle appearance and a long thread was used on the third screw. Final C-arm pictures were saved. Wounds were irrigated using a bulb syringe and then closed using 2-0 Vicryl in the subcutaneous tissues and then anya were used on the skin. Sterile dressing was applied. The patient then was extubated in the OR and was stable on transfer to the recovery room. [id number]/CPS #: [id number] ELIZABETH
[2017-07-05] MEDS: oxyCODONE/Acetamin 5/325 MG* TAB PO PRN ×2 (01:10→08:44)
[2017-07-05 05:41] LABS: ABS Basophils 0 10^3/ul (0-0.2); ABS Eosinophils 0.1 10^3/ul (0-0.6); ABS Lymphocytes 1.5 10^3/ul (1.0-4.8); ABS Monocytes 0.7 10^3/ul (0-0.8); ABS Neutrophils 3.1 10^3/ul (1.5-7.7); ABS Nucleated RBC 0 10^3/ul; Eosinophil % 1.8 % (0-6); Hematocrit 41 % (42-52); Hemoglobin 14.1 g/dl (14.0-18.0); Lymphocyte % 27.6 % (25-47); Mean Corpuscular HGB Conc 34 g/dl (31-36); Mean Corpuscular Hemoglobin 34 pg (27-31); Mean Corpuscular Volume 98 fL (80-94); Mean Platelet Volume 8 um3 (7.4-10.4); Nucleated Red Blood Cells % 0.1; Platelet Count 168 10^3/ul (150-450); Red Blood Count 4.22 10^6/ul (4.0-5.4); Red Cell Distribution Width 14 % (10.5-15); White Blood Count 5.4 10^3/ul (3.5-10.8)
[2017-07-05] MEDS: Omeprazole CAP* 20 MG PO SCH (06:00)
[2017-07-05] MEDS: ceFAZolin 1 GM in Dextrose (*) 1 GM/50 ML BAG IVPB SCH (08:00)
[2017-07-05] MEDS: Calcium Polycarbophil TAB* 625 MG PO SCH (08:04)
[2017-07-05] MEDS: Multivitamins/Minerals TAB PO SCH (08:04)
[2017-07-05] MEDS: Calcium Acetate CAP* 667 MG PO SCH ×3 (08:05→20:37)
[2017-07-05] MEDS: Enoxaparin(*) 30 MG/0.3 ML SYR SUBCUT SCH (08:05)
[2017-07-05] MEDS: Primidone TAB(*) 250 MG PO SCH ×2 (08:06→20:37)
[2017-07-05] MEDS: Multivitamins/Minera Areds(NF) 1 CAP CAP PO SCH (08:06)
[2017-07-05] MEDS: Fluticasone NASAL SPRAY 50MCG* 16 gm SPRAY BTL BOTH NARES SCH (08:07)
[2017-07-05] MEDS: CMC:Brimonidine P 0.1%(NF) 1 DROP BTL BOTH EYES SCH ×2 (08:11→20:37)
--- NOTE | 2017-07-05 08:25 | PN ---
Progress Note - Progress Note Date of Service: 07/05/17 SOAP: Subjective: [] Patient seen at bedside. He feels well and denies RLE pain, CP, SOB, dizziness. Objective: [] Vital Signs Temp 97.6 F 07/05/17 03:24 Pulse 82 07/05/17 03:25 Resp 16 07/05/17 08:00 BP 101/45 07/05/17 03:24 Pulse Ox 99 07/05/17 08:00 Intake & Output 07/04/17 07/05/17 07/05/17 18:59 06:59 18:59 Intake Total 2133 1865 Balance 2133 1865 Intake: IV Fluids 203 526 ABX - CEFAZOLIN 50 50 NS (0.9%) 1484 476 lr 500 Oral 100 1340 Other: Estimated Void Medium Large Date of Last Bowel 07/05/17 Movement # Bowel Movements 1 Estimated Stool Amount Small Estimated Blood Loss min Comment # Voids 1 1 Laboratory Last Values WBC 5.4 10^3/ul (3.5-10.8) 07/05/17 05:17 RBC 4.22 10^6/ul (4.0-5.4) 07/05/17 05:17 Hgb 14.1 g/dl (14.0-18.0) 07/05/17 05:17 Hct 41 % (42-52) L 07/05/17 05:17 MCV 98 fL (80-94) H 07/05/17 05:17 MCH 34 pg (27-31) H 07/05/17 05:17 MCHC 34 g/dl (31-36) 07/05/17 05:17 RDW 14 % (10.5-15) 07/05/17 05:17 Plt Count 168 10^3/ul (150-450) 07/05/17 05:17 MPV 8 um3 (7.4-10.4) 07/05/17 05:17 Neut % (Auto) 56.6 % (38-83) 07/05/17 05:17 Lymph % (Auto) 27.6 % (25-47) 07/05/17 05:17 Rich % (Auto) 13.4 % (1-9) H 07/05/17 05:17 Eos % (Auto) 1.8 % (0-6) 07/05/17 05:17 Baso % (Auto) 0.6 % (0-2) 07/05/17 05:17 Absolute Neuts (auto) 3.1 10^3/ul (1.5-7.7) 07/05/17 05:17 Absolute Lymphs (auto) 1.5 10^3/ul (1.0-4.8) 07/05/17 05:17 Absolute Monos (auto) 0.7 10^3/ul (0-0.8) 07/05/17 05:17 Absolute Eos (auto) 0.1 10^3/ul (0-0.6) 07/05/17 05:17 Absolute Basos (auto) 0 10^3/ul (0-0.2) 07/05/17 05:17 Absolute Nucleated RBC 0 10^3/ul 07/05/17 05:17 Nucleated RBC % 0.1 07/05/17 05:17 Sodium 137 mmol/L (133-145) 07/05/17 05:17 Potassium 3.8 mmol/L (3.5-5.0) 07/05/17 05:17 Chloride 104 mmol/L (101-111) 07/05/17 05:17 Carbon Dioxide 28 mmol/L (22-32) 07/05/17 05:17 Anion Gap 5 mmol/L (2-11) 07/05/17 05:17 BUN 16 mg/dL (6-24) 07/05/17 05:17 Creatinine 0.60 mg/dL (0.67-1.17) L 07/05/17 05:17 Est GFR ( Amer) 168.5 (>60) 07/05/17 05:17 Est GFR (Non-Af Amer) 131.0 (>60) 07/05/17 05:17 BUN/Creatinine Ratio 26.7 (8-20) H 07/05/17 05:17 Glucose 98 mg/dL (70-100) 07/05/17 05:17 Calcium 8.8 mg/dL (8.6-10.3) 07/05/17 05:17 Total Bilirubin 0.40 mg/dL (0.2-1.0) 07/03/17 09:25 AST 16 U/L (13-39) 01/30/18 09:25 ALT 10 U/L (7-52) 07/03/17 09:25 Alkaline Phosphatase 67 U/L (34-104) 07/03/17 09:25 C-Reactive Protein 13.88 mg/L (< 5.00) H 07/03/17 09:25 Total Protein 6.1 g/dL (6.4-8.9) L 07/03/17 09:25 Albumin 3.4 g/dL (3.2-5.2) 07/03/17 09:25 Globulin 2.7 g/dL (2-4) 07/03/17 09:25 Albumin/Globulin Ratio 1.3 (1-3) 07/03/17 09:25 Valproic Acid 65.0 mcg/mL (50-100) 07/03/17 09:25 General: Well appearing, NAD. Answers questions appopriately but does not follow all commands RLE: Dressing CDI without surrounding erythema. Will not follow commands to DF/ PF. 2+ DP pulse. BL LE: Calves without erythema, edema or palpable cords. Assessment: []POD 1 s/p right hip percutaneous pinning 07/04, Dr Kendrick Plan: []WBAT PT/OT Lovenox 30 mg sq qd DC to [facility] 07/06
--- NOTE | 2017-07-05 15:20 | PN ---
Subjective Date of Service: 07/05/17 Interval History: pt doesn't remember why he is in hospital , no complains Objective Active Medications: Acetaminophen (Tylenol Tab*) 650 mg PO Q4H PRN PRN Reason: FEVER/PAIN Last Admin: 07/04/17 10:51 Dose: 650 mg Brimonidine Tartrate (Alphagan P 0.1% (Nf)) 1 drop BOTH EYES BID [facility] Last Admin: 07/05/17 08:11 Dose: Not Given Calcium Acetate (Phoslo Cap*) 667 mg PO TID [facility] Last Admin: 07/05/17 13:30 Dose: 667 mg Calcium Polycarbophil (Fibercon Tab*) 625 mg PO DAILY [facility] Last Admin: 07/05/17 08:04 Dose: 625 mg Divalproex Sodium (Depakote Dr Tab(*)) 250 mg PO 1999 [facility] Last Admin: 07/04/17 19:54 Dose: 250 mg Divalproex Sodium (Depakote Dr Tab(*)) 1,000 mg PO 1999 [facility] Last Admin: 07/04/17 19:54 Dose: 1,000 mg Enoxaparin Sodium (Lovenox(*)) 30 mg SUBCUT DAILY [facility] Last Admin: 07/05/17 08:05 Dose: 30 mg Fluticasone Propionate (Flonase Nasal [place] 50mcg*) 2 spray BOTH NARES DAILY [facility] Last Admin: 07/05/17 08:07 Dose: 2 spray Magnesium Hydroxide (Milk Of Magnesia Liq*) 30 ml PO BEDTIME PRN PRN Reason: CONSTIPATION Morphine Sulfate (Morphine Inj (Syringe)*) 1 mg IV Q4H PRN PRN Reason: PAIN Multivitamins/Minerals (Theragran/Minerals Tab*) 1 tab PO DAILY [facility] Last Admin: 07/05/17 08:04 Dose: 1 tab Omeprazole (Prilosec Cap*) 20 mg PO DAILY@0600 [facility] Last Admin: 07/05/17 06:00 Dose: 20 mg Oxycodone/Acetaminophen (Percocet 5/325 Tab*) 1 tab PO Q4H PRN PRN Reason: Pain Last Admin: 07/05/17 08:44 Dose: 1 tab Primidone (Mysoline Tab(*)) 250 mg PO BID [facility] Last Admin: 07/05/17 08:06 Dose: 250 mg Sodium Biphosphate/Sodium Phosphate (Fleet Enema*) 1 bottle [place] DAILY PRN PRN Reason: CONSTIPATION Vital Signs - 8 hr 07/05/17 07/05/17 07/05/17 08:00 08:42 08:44 Temperature 97.7 F Pulse Rate 66 Respiratory 16 28 20 Rate Blood Pressure 133/65 (mmHg) O2 Sat by Pulse 99 97 Oximetry 07/05/17 07/05/17 07/05/17 10:32 10:43 11:32 Temperature 97.3 F Pulse Rate 72 Respiratory 18 18 Rate Blood Pressure 110/59 (mmHg) O2 Sat by Pulse 98 98 Oximetry Oxygen Devices in Use Now: None Appearance: 76 yo M in nAD, oriented x 1, pleasant and conversational Eyes: No Scleral Icterus, PERRLA Ears/Nose/Mouth/Throat: NL Teeth, Lips, Gums, Mucous Membranes Moist Neck: NL Appearance and Movements; NL JVP, Trachea Midline Respiratory: Symmetrical Chest Expansion and Respiratory Effort, - - faint crackles at b/l bases Cardiovascular: NL Sounds; No Murmurs; No JVD, RRR Abdominal: NL Sounds; No Tenderness; No Distention Lymphatic: No Cervical Adenopathy Skin: No Nodules or Sclerosis, - - r hip post op incisions with no dehiscence, no infection noted Neurological: NL Muscle Strength and Tone Result Diagrams: 07/05/17 05:17 07/05/17 05:17 Additional Lab and Data: Lab Results 07/03/17 07/03/17 Range/Units 09:25 09:25 WBC 5.2 (3.5-10.8) 10^3/ul RBC 4.59 (4.0-5.4) 10^6/ul Hgb 15.4 (14.0-18.0) g/dl Hct 45 (42-52) % MCV 98 H (80-94) fL MCH 34 H (27-31) pg MCHC 34 (31-36) g/dl RDW 14 (10.5-15) % Plt Count 190 (150-450) 10^3/ul MPV 8 (7.4-10.4) um3 Neut % (Auto) 66.3 (38-83) % Lymph % (Auto) 19.0 L (25-47) % [place] % (Auto) 10.9 H (1-9) % Eos % (Auto) 3.3 (0-6) % Baso % (Auto) 0.5 (0-2) % Absolute Neuts (auto) 3.5 (1.5-7.7) 10^3/ul Absolute Lymphs (auto) 1.0 (1.0-4.8) 10^3/ul Absolute Monos (auto) 0.6 (0-0.8) 10^3/ul Absolute Eos (auto) 0.2 (0-0.6) 10^3/ul Absolute Basos (auto) 0 (0-0.2) 10^3/ul Absolute Nucleated RBC 0 10^3/ul Nucleated RBC % 0.2 Sodium 134 (133-145) mmol/L Potassium 4.1 (3.5-5.0) mmol/L Chloride 101 (101-111) mmol/L Carbon Dioxide 27 (22-32) mmol/L Anion Gap 6 (2-11) mmol/L BUN 17 (6-24) mg/dL Creatinine 0.68 (0.67-1.17) mg/dL Est GFR ( Amer) 145.8 (>60) Est GFR (Non-Af Amer) 113.4 (>60) BUN/Creatinine Ratio 25.0 H (8-20) Glucose 93 (70-100) mg/dL Calcium 9.4 (8.6-10.3) mg/dL Total Bilirubin 0.40 (0.2-1.0) mg/dL AST 16 (13-39) U/L ALT 10 (7-52) U/L Alkaline Phosphatase 67 (34-104) U/L C-Reactive Protein 13.88 H (< 5.00) mg/L Total Protein 6.1 L (6.4-8.9) g/dL Albumin 3.4 (3.2-5.2) g/dL Globulin 2.7 (2-4) g/dL Albumin/Globulin Ratio 1.3 (1-3) Valproic Acid 65.0 (50-100) mcg/mL Microbiology and Other Data: Microbiology 07/03/17 13:50 Nasal Screen MRSA (PCR)(TIFFANIE) - Final Nasal Mrsa Not Detected Assess/Plan/Problems-Billing Assessment: 76 yo M with h/o dementia, epilepsy, HTN presents with R hip pain - Patient Problems (1) Closed right hip fracture Comment: s/p ORIF on 07/04/17, doing well. (2) Seizure disorder Comment: cont Depakote (3) HTN (hypertension) Comment: BP WNL, holding HCTZ (4) DVT prophylaxis Comment: lovenox as per ortho Status and Disposition: inpatient
[2017-07-05] MEDS: Divalproex DR TAB(*) 500 MG PO SCH (20:36)
[2017-07-05] MEDS: Divalproex DR TAB(*) 250 MG PO SCH (20:37)
[2017-07-05] MEDS: Acetaminophen TAB* 325 MG PO PRN (20:37)
[2017-07-06] MEDS: oxyCODONE/Acetamin 5/325 MG* TAB PO PRN (06:02)
[2017-07-06] MEDS: Omeprazole CAP* 20 MG PO SCH (06:02)
[2017-07-06 06:20] LABS: Hematocrit 44 % (42-52); Hemoglobin 15.1 g/dl (14.0-18.0)
[2017-07-06] MEDS: Primidone TAB(*) 250 MG PO SCH (08:45)
[2017-07-06] MEDS: Multivitamins/Minerals TAB PO SCH (08:45)
[2017-07-06] MEDS: Fluticasone NASAL SPRAY 50MCG* 16 gm SPRAY BTL BOTH NARES SCH (08:45)
[2017-07-06] MEDS: CMC:Brimonidine P 0.1%(NF) 1 DROP BTL BOTH EYES SCH (08:45)
[2017-07-06] MEDS: Calcium Polycarbophil TAB* 625 MG PO SCH (08:45)
[2017-07-06] MEDS: Enoxaparin(*) 30 MG/0.3 ML SYR SUBCUT SCH (08:51)
[2017-07-06] MEDS: Calcium Acetate CAP* 667 MG PO SCH (08:55)
--- NOTE | 2017-07-06 11:12 | PN ---
Progress Note - Progress Note Date of Service: 07/06/17 SOAP: Subjective: 76 y/o male s/p L perc pinning by Dr Kendrick 07/04. Patient sitting in bed watchin TV, no pain complaints. vss afebrile overnight. Objective: General- Well appearing, NAD, AO, mild confusion MSK- Dressing taken down, no erythema, ecchymosis, c/d/i, new dressing placed, + DF/PF b/l, PT 2+ b/l, neg homans. Vital Signs Temp 97.4 F 07/06/17 07:38 Pulse 69 07/06/17 07:38 Resp 20 07/06/17 08:56 BP 136/69 07/06/17 07:38 Pulse Ox 96 07/06/17 07:50 Intake & Output 07/05/17 07/06/17 07/06/17 18:59 06:59 18:59 Intake Total 866 300 100 Output Total 0 Balance 866 300 100 Intake: IV Fluids 221 NS (0.9%) 221 IVPB 60 ABX - CEFAZOLIN 60 Oral 585 300 100 Output: Urine 0 Other: Estimated Void Large Large Large # Bowel Movements 0 # Voids 1 1 2 Assessment: Stable 76 y/o male s/p L perc pinning by Dr Kendrick 07/04. Plan: - D/C today per hospitalists - Continue lovenox for DVT prophylaxis until cleared by Dr. Kendrick - Wound check daily Active Medications Generic Name Dose Route Start Last Admin Trade Name Freq PRN Reason Stop Dose Admin Acetaminophen 650 mg 07/03/17 11:45 07/05/17 20:37 Tylenol Tab* PO 650 mg Q4H PRN Administration FEVER/PAIN Brimonidine Tartrate 1 drop 07/03/17 21:00 07/06/17 08:45 Alphagan P 0.1% (Nf) BOTH EYES 1 drop BID [facility] Administration Calcium Acetate 667 mg 07/03/17 14:00 07/06/17 08:55 Phoslo Cap* PO 667 mg TID [facility] Administration Calcium Polycarbophil 625 mg 07/04/17 09:00 07/06/17 08:45 Fibercon Tab* PO 625 mg DAILY [facility] Administration Divalproex Sodium 250 mg 07/04/17 20:00 07/05/17 20:37 Depakote Tab(*) PO 250 mg 2000 [facility] Administration Divalproex Sodium 1,000 mg 07/04/17 20:00 07/05/17 20:36 [place] Tab(*) PO 1,000 mg 2000 [facility] Administration Enoxaparin Sodium 30 mg 07/05/17 09:00 07/06/17 08:51 Lovenox(*) SUBCUT 30 mg DAILY [facility] Administration Fluticasone Propionate 2 spray 07/04/17 09:00 07/06/17 08:45 Flonase Nasal [place] 50mcg* BOTH NARES 2 spray DAILY [facility] Administration Magnesium Hydroxide 30 ml 07/03/17 11:50 07/06/17 08:45 Milk Of Magnesia Liq* PO 30 ml BEDTIME PRN Administration CONSTIPATION Morphine Sulfate 1 mg 07/04/17 18:01 Morphine Inj (Syringe)* IV Q4H PRN PAIN Multivitamins/Minerals 1 tab 07/04/17 09:00 07/06/17 08:45 Theragran/Minerals Tab* PO 1 tab DAILY [facility] Administration Omeprazole 20 mg 07/04/17 06:00 07/06/17 06:02 Prilosec Cap* PO 20 mg DAILY@0600 [facility] Administration Oxycodone/Acetaminophen 1 tab 07/03/17 11:45 07/06/17 06:02 Percocet 5/325 Tab* PO 1 tab Q4H PRN Administration Pain Primidone 250 mg 07/03/17 21:00 07/06/17 08:45 Mysoline Tab(*) PO 250 mg BID [facility] Administration Sodium Biphosphate/Sodium Phosphate 1 bottle 07/03/17 11:50 Fleet Enema* [place] DAILY PRN CONSTIPATION
--- NOTE | 2017-07-06 12:05 | DS ---
CC: Dr. Noreen Mcdaniels; Dr. Kendrick; [facility] * DISCHARGE SUMMARY DATE OF ADMISSION: 07/03/2017 DATE OF DISCHARGE: 07/06/2017 PRIMARY CARE PROVIDER: Dr. Noreen Mcdaniels DISCHARGE DIAGNOSES: 1. Right hip fracture status post percutaneous pinning of the right hip performed by Dr. Kendrick on 07/04/17. SECONDARY DIAGNOSES: 1. History of dementia. 2. History of seizure disorder. 3. History of hypertension. MEDICATIONS AT DISCHARGE: Include: 1. Tylenol 650 mg on a p.r.n. basis. 2. Alphagan eye drops 0.1% 1 drop bilateral eyes b.i.d. 3. PhosLo 667 mg 3x a day. 4. Calcium carbonate 1 chewable 3x a day. 5. Fiber-Lax 1 tablet daily. 6. Refresh eye drops 0.5% 1 drop both eyes 4x a day. 7. Diazepam 2 mg 3x a day. 8. Depakote [address] 1250 mg b.i.d. 9. Lovenox 30 mg subcutaneous daily for 30 days total. 10. Flonase nasal spray 1 spray both nostrils daily. 11. Glycerine suppository 1 suppository q.a.m. p.r.n. 12. Hydrochlorothiazide 12.5 mg daily. 13. Milk of Magnesia on a p.r.n. basis. 14. Ocuvite 1 capsule daily. 15. Multivitamin 1 tablet daily. 16. Omeprazole 20 mg daily. 17. Percocet 5/325 mg 1 tablet every 6 hours p.r.n. 18. Primidone 250 mg b.i.d. 19. Vitamin B2 100 mg daily. 20. Fleets enema on p.r.n. basis. 21. Travatan eye drops 0.004% 1 drop both eyes at bedtime. LABORATORY DATA: During the hospital stay: 1. On 07/05/17 patient's hemoglobin was 15.1, hematocrit of 44. 2. On 07/06/17 sodium 136, potassium 4.0, chloride 102, calcium ___, BUN 12, creatinine 0.57. PROCEDURES: During the hospital stay included percutaneous pinning of the right hip performed by Dr. Kendrick on 07/04/17. At discharge patient is recommended to be weightbearing as tolerated. The Lovenox is to be for 30 days only, then stop. Patient is to followup with Dr. Kendrick in 2-3 weeks and please call for an appointment. DIET: Regular. WOUND CARE: Patient is okay to shower, but no bathing, swimming or submerging of the wound. Cover with antibiotic ointment, gauze and Blayne wrap and change when soiled. PHYSICAL EXAMINATION: At the time of discharge blood pressure 136/69, heart rate of 69 and regular, respiratory rate 18, oxygen saturation 96% at room air, temp 97.4. This is a very pleasant 76-year-old male who is in no acute distress. Patient is alert and oriented x1. HEENT: Head atraumatic, normocephalic. Eyes: Pupils are equal and reactive to light and accommodation. Oropharynx clear. Mucosa moist. Neck: Supple. No JVD. No bruit bilaterally. Cardiovascular: Regular rate and rhythm. No murmur. Respiratory: Clear to auscultation bilaterally. Abdomen: Soft, nontender. Bowel sounds are present in all 4 quadrants. Extremities: There is trace bilateral pedal edema. +2 pulses bilaterally. No clubbing or cyanosis. Neuro: Speech clear. Cranial nerves II through XII intact. Motor strength is 5/5 bilaterally. HOSPITALIZATION COURSE: Ravi Gage is a 76-year-old male with history of dementia and seizure disorder, who has very limited mobility and basically is a Tessa lift at [facility], who fell attempting to get out of bed on 04/21. He presented to the hospital for evaluation but the x-rays did not reveal any fractures. Despite that patient continued to have pain while in the residential in the right hip. On 06/28/[address] of the pelvis performed which showed fracture of the right hip. He was admitted to the hospital on 07/03/17 and operated on by Dr. Kendrick with percutaneous hip pinning on 07/04/17. Postoperatively he did very well and he is being discharged back to [facility] today on 07/06/17. Please note this is a short summary of complicated case on patient's long hospitalization. Please refer to further medical records for details. Approximately 40 minutes was spent on the patient's discharge. [id number]/[facility] #: [id number] [facility]
[2017-07-06 12:46] VITALS: BP 139/78
[2017-07-06] MEDS: Acetaminophen TAB* 325 MG PO PRN (12:52)
== END 2017-07-06 13:05 | DRG 482 ==
LOC: ED 07:51 → SSU 11:11
PROVIDERS: ADMIT Internal Medicine; ATTEND Internal Medicine
PROC: 0QH634Z Insertion of Internal Fixation Device into Right Upper Femur, Percutaneous Approach (ICD-10-PCS; principal; 2017-07-04 07:45)
DX: S72.011A Unspecified intracapsular fracture of right femur, initial encounter for closed fracture (principal); F03.90 Unspecified dementia, unspecified severity, without behavioral disturbance, psychotic disturbance, mood disturbance, and anxiety; I50.9 Heart failure, unspecified; I11.0 Hypertensive heart disease with heart failure; G40.909 Epilepsy, unspecified, not intractable, without status epilepticus; W06.XXXA Fall from bed, initial encounter; Z66 Do not resuscitate; M21.051 Valgus deformity, not elsewhere classified, right hip; Z96.651 Presence of right artificial knee joint; Y92.122 Bedroom in nursing home as the place of occurrence of the external cause; Z88.8 Allergy status to other drugs, medicaments and biological substances
CPT/HCPCS: 36415; 71045; 80048; 80053; 80164; 85014; 85018; 85025; 86140; 87641; 93005; A9270-GY; C1713; J0690; J1100; J1644; J1650; J1885; J2250; J2704; J3010